=== PATIENT | male | born 1960 | race Caucasian/White ===

== ENCOUNTER 2024-09-13 19:51 | Emergency (ER) | payer MEDICAID ==
[~2024-09-13] VITALS: Ht 175.3 cm; Wt 74.5 kg
[~2024-09-13 19:51] MED LIST: NAPR220C15 PO
[2024-09-13 19:53] VITALS: TEMP 98.4
[2024-09-13 20:48] LABS: MEAN PLATELET VOLUME 7.3 FL (7.4-10.4); RED CELL DISTRIBUTION WIDTH 13.4 % (11.5-14.5)
[2024-09-13 21:07] LABS: CREATININE 1.17 MG/DL (0.60-1.10); TOTAL CARBON DIOXIDE 27.1 MMOL/L (24-32); eCRCL 64 ML/MIN; eGFR 63 ML/MIN
[2024-09-13 21:45] LABS: LEUKOCYTE ESTERASE ,URINE NEGATIVE (Neg); NITRITES, URINE NEGATIVE (Neg); OCCULT BLOOD,URINE NEGATIVE (Neg); UA COLLECTION TYPE CLN CATCH MIDSTREAM
--- NOTE | 2024-09-13 22:12 | Physician Documentation ---
History of Present Illness Chief Complaint: Abdominal Pain Stated Complaint: ABDOMINAL PAIN Time Seen by MD: 22:05 Primary Medical Doctor: Duke pinzon in Mode of Arrival: POV, Ambulatory HPI 64-year-old male presents with complaint of right lower quadrant abdominal pain. It is his pain is worse when sneezing. States that this has been a worsening complaint. Denies any changes to his bowel movements. Says that he can touch the pain on the exterior of his abdomen. He also reports having a history of hernias. denies any fevers nausea vomiting or diarrhea Day of Onset: Sep 13, 2024 Medication Reconciliation Allergies: Coded Allergies: codeine (Verified Allergy, Unknown, HIVES, 04/21/15) Scheduled PRN Naproxen Sodium* (Aleve*), 220 MG PO BID PRN for pain, (Reported) Past Medical History Past Medical History: Hernia Past Surgical History: abdominal surgery, orthopedic surgeries Alcohol Use: Rarely Drug Use: methamphetamine Occupation: employed Review of Systems All Other Systems at this time: Reviewed and Negative ROS As stated above in the HPI, otherwise all systems are reviewed and negative. Physical Exam Vital Signs: Temperature: 98.4, Source: Oral, Heart Rate: 84, Respiratory Rate: 20, BP: 155/84, Pulse Oximetry: 97, Weight: 74.500 Oxygen Flow Rate: 0 Physical Exam Abdominal: Right lower quadrant palpable hernia that is reducible does not feel strangulated or incarcerated.. Neurologic: Oriented x4. Psychiatric: Normal mood and affect. Skin: Normal color, warm and dry. No edema, no ecchymosis. Progress Results/Orders Results/Orders Vital Signs 09/13/24 09/13/24 09/13/24 19:53 20:23 21:36 Temp 98.4 Pulse 91 84 Resp 17 20 B/P (MAP) 144/87 155/84 (107) Pulse Ox 97 O2 Flow Rate 0 Laboratory Tests Test 09/13/24 20:38 09/13/24 21:34 White Blood Count 9.8 Red Blood Count 5.15 Hemoglobin 15.7 Hematocrit 45.5 Mean Corpuscular Volume 88.3 Mean Corpuscular Hemoglobin 30.4 Mean Corpuscular Hemoglobin Concent 34.5 Red Cell Distribution Width 13.4 Platelet Count 267 Mean Platelet Volume 7.3 L Neutrophils (%) (Auto) 68.8 Lymphocytes (%) (Auto) 18.8 L Monocytes (%) (Auto) 9.7 Eosinophils (%) (Auto) 2.2 Basophils (%) (Auto) 0.5 Neutrophils # (Auto) 6.7 Lymphocytes # (Auto) 1.8 Monocytes # (Auto) 0.9 Eosinophils # (Auto) 0.2 Basophils # (Auto) 0.0 CBC Comment Sodium Level 139 Potassium Level 3.8 Chloride Level 106 Carbon Dioxide Level 27.1 Anion Gap 6 L Blood Urea Nitrogen 18 Creatinine 1.17 H Estimated GFR/1.73 m2 63 BUN/Creatinine Ratio 15.4 Glucose Level 112 H Calcium Level 9.0 Total Bilirubin 1.1 H Aspartate Amino Transf (AST/SGOT) 25 Alanine Aminotransferase (ALT/SGPT) 51 Alkaline Phosphatase 89 Total Protein 7.3 Albumin 3.7 Globulin 3.6 Albumin/Globulin Ratio 1.0 L Lipase 28 Chemistry Comments Urine Specimen Description Cln catch midstream Urine Color Yellow Urine Clarity Clear Urine pH 6.0 Urine Specific [place] 1.025 Urine Protein Negative Urine Glucose (UA) 100 H Urine Ketones Negative Urine Occult Blood Negative Urine Nitrite Negative Urine Bilirubin Negative Urine Urobilinogen 2.0 H Urine Leukocyte Esterase Negative Urine Culture Indicated Not ind Volume Urine Centrifuged 10 ml Urine Comment Medical Decision Making Findings Who through physical exam I discovered a likely umbilical periumbilical hernia. [place] reducible and non strangulated. This clinically correlates with the patient's complaints. This time I do not see any reason to pursue further imaging based on the patient's history and life exam findings. He has access to outpatient care and going to discharge him at this time Differential Dx:Considerations: Include: AAA, Angina/[place], Aortic dissection, Appendicitis, Bowel obstruction, Cholangitis, Cholelithasis, Constipation, Diverticular disease, Esophageal rupture, Esophagitis, Gastritis/PUD, Gastroenteritis, GI hemorrhage, Hernia, Hepatitis, Inflammatory BD, Ischemic bowel, Pancreatitis, Porphyria, Testicular torsion, Trauma, intraabdominal, Urinary obstruction, Urinary tract infection, Urolithiasis, Other Departure Disposition: HOME / SELF CARE / HOMELESS Impression: Primary Impression: Abdominal pain Referrals: NO PRIMARY CARE PROVIDER (PCP) Signature Scribe Signature: f Attestation: Scribed for Charles Cespedes Posting Clerk by Charles Montalvo NP . 09/13/24 23:26 CHARLES CESPEDES NP Sep 13, 2024 22:12
[2024-09-13 22:25] VITALS: BP 134/76; PULSE 66; RESP 20; O2SAT 97
== END 2024-09-13 22:28 | disposition home or self-care (01) ==
LOC: ER 19:52
DX: R10.31 Right lower quadrant pain (principal); R06.7 Sneezing; F15.90 Other stimulant use, unspecified, uncomplicated; Z88.5 Allergy status to narcotic agent
CPT/HCPCS: 36415; 80053; 81003; 83690; 85025; 99283